=== PATIENT | female | born 1960 | race Caucasian/White ===

== ENCOUNTER 2017-05-17 05:17 | Inpatient (IN) | payer OTHER ==
[2017-05-17] VITALS (7 sets, daily range): BP systolic 124–179; BP diastolic 71–95
[~2017-05-17] VITALS: Ht 157.5 cm; Wt 109.3 kg
--- NOTE | ~2017-05-17 | S ---
[facility] [address] [place] [address] SURGICAL PATH RPT PROCEDURE Name: RICARDO LIMA Room #: 533-P DIS IN M.R.#: [id number] Admission: 05/17/17 Date of : 60 Discharge: 05/18/17 Report #: [id number] Path Case #: [id number] PATHOLOGY REPORT COLLECTION DATE: 05/17/2017 RECEIVED DATE: 05/17/2017 SUBMITTING PHYS: Dr. Deborah Dotson OTHER PHYS: Dr. Keenan Rainey ADDENDUM REPORT (Order Date: 05/22/2017 11:45) ADDENDUM COMMENT: The immunoperoxidase stain for Helicobacter is positive. (SHA:devorah; 05/22/2017) Professional services performed by [facility] at [address] , [place] [address] Technical services performed by [facility] at [address] [place] [address], [address] [place] [address]. ELECTRONICALLY SIGNED BY: Jose Marroquin M.D. DATE/TIME:05/22/2017 12:47 SPECIMEN(S) RECEIVED: A.Gastric sleeve * * * * * * * * * * * * FINAL DIAGNOSIS: Portion of stomach "gastric sleeve", partial gastrectomy: - Moderate chronic reactive gastropathy with mild chronic gastritis. - The immunoperoxidase stains for Helicobacter pylori will be done an additional report will follow. (SHA:pit; 05/21/2017) PATHOLOGIST: Jose Marroquin M.D. REPORT ELECTRONICALLY SIGNED BY: Jose Marroquin M.D. DATE/TIME: 05/21/2017 12:54 * * * * * * * * * * * * GROSS PATHOLOGY: The specimen is received in formalin, labeled "Ricardo Lima, gastric sleeve". Received is a partial gastrectomy specimen with a stapled margin of resection measuring 18.5 x 5.6 x 3.8 cm in greatest [address] [address] SURGICAL PATH RPT PROCEDURE Name: RICARDO LIMA Room #: 533-[facility] IN M.R.#: [id number] Admission: 05/17/17 Date of : 60 Discharge: 05/18/17 Report #: [id number] Path Case #: [id number] dimensions. The serosal surface is pink-diaz to pink-hamlin, smooth and glistening in appearance. Opening the specimen reveals a light diaz to hamlin-diaz, cobblestone-appearing mucosa with moderate architectural folds in. No distinct nodules or lesions are noted grossly. The specimen is submitted representatively in cassettes A1 through A3. (CAA; 05/19/2017) CLINICAL HISTORY: Morbid obesity INITIAL CPT CODE(S): A; 45256, 22225 Professional services performed by [facility] at [address], [place] [address] Technical services performed by [facility] at [address] [place] [address], [address], [place] [address]. [facility] [address] [place] [address] PHONE: [phone] DIRECTOR: Ran Petersen M.D. * * * END OF REPORT * * *
--- NOTE | ~2017-05-17 | EKG ---
[address] [address] ELECTROCARDIOGRAM REPORT Name: RICARDO LIMA Room #: 533-P [facility] IN M.R.#: [id number] Admission: 05/17/17 Attend Phys: Deborah Dotson MD, Discharge: 05/18/17 Date of : 60 Report #: [id number] THIS REPORT FOR: //name// [facility] Test Date: 2017-05-17 Test Time: 06:34:03 Pat Name: RICARDO LIMA Department: Room: 533 Gender: F [employer] Operator: KACY : 1960 Requested By: Deborah Dotson Order Number: [id number] MD: Miguel Collins Measurements Intervals [place] Rate: 67 P: 7 MN: 199 QRS: -23 QRSD: 100 T: 63 QT: 418 QTc: 442 Interpretive Statements Sinus rhythm Left ventricular hypertrophy No previous ECG available for comparison Electronically Signed On 05-20-2017 21:56:22 CDT by Miguel Collins [email or web address] <ELECTRONICALLY SIGNED> By: Miguel Collins MD 05/20/17 [id number] D: [id number] Miguel Collins MD /HUMPHREY
[~2017-05-17 05:17] MED LIST: ASPIR 8181 MG PO
[2017-05-17 06:57] LABS: HEMATOCRIT 38.4 % (37.0-47.0); HEMOGLOBIN 12.6 gm/dL (12.0-15.0)
[2017-05-18] VITALS: BP 143/74
[2017-05-18 04:55] VITALS: BP 126/60
[2017-05-18 05:53] LABS: HEMATOCRIT 36.9 % (37.0-47.0); HEMOGLOBIN 12.1 gm/dL (12.0-15.0); MCH 27.7 pg (26.0-34.0); MCHC 32.7 g/dL (28.0-37.0); MCV 84.8 fL (80.0-100.0); RBC 4.35 mil/uL (4.20-5.00); WBC 8.3 thou/uL (4.0-11.0)
[2017-05-18 06:02] LABS: CALCIUM 8.4 mg/dL (8.5-10.1); CREATININE 0.8 mg/dL (0.6-1.0); POTASSIUM 4.3 mmol/L (3.5-5.1)
[2017-05-18 08:29] VITALS: BP 116/52
[2017-05-18 12:55] VITALS: BP 116/52
== END 2017-05-18 13:25 | disposition home or self-care (01) | DRG 621 ==
LOC: TBA 05:17 → OR 05:17 → 5S 10:33 → EDSTATUS 15:00 → OR 15:08 → 5S 05-18 13:25
PROVIDERS: Surgery
PROC: 0DJ08ZZ Inspection of Upper Intestinal Tract, Via Natural or Artificial Opening Endoscopic (ICD-10-PCS; principal; 2017-05-17)
PROC: 0DB64Z3 Excision of Stomach, Percutaneous Endoscopic Approach, Vertical (ICD-10-PCS; principal; 2017-05-17)
DX: E66.01 Morbid (severe) obesity due to excess calories (principal); M54.5 Low back pain; M79.662 Pain in left lower leg; M79.661 Pain in right lower leg; K21.9 Gastro-esophageal reflux disease without esophagitis; Z68.41 Body mass index [BMI] 40.0-44.9, adult; Z79.82 Long term (current) use of aspirin
CPT/HCPCS: 10785; 50010; 50101; 50222; 50249; 50386; 50555; 50739; 50740; 50962; 51437; 51489; 52182; 52265; 53307; 53311; 54022; 54118; 55245; 56462; 56525; 56526; 57092; 62110; 62900; 70005